=== PATIENT | female | born 1990 | race Caucasian/White ===

== ENCOUNTER 2024-11-21 01:30 | Emergency (ER) | payer OTHER, SELFPAY ==
[2024-11-21 01:31] VITALS: BP 138/97; PULSE 90; RESP 16; TEMP 36.8; O2SAT 97; BMI 34.3
--- NOTE | 2024-11-21 02:49 | ED_ITS ---
HPI - Recheck/Abnormal Lab/Rx General Chief Complaint: Recheck/Abnormal Lab/Rx Stated Complaint: diabetic and out of medication Time Seen by Provider: 11/21/24 01:45 Source: patient Mode of arrival: Family Vehicle Limitations: no limitations History of Present Illness HPI narrative: 34-year-old female history of diabetes states she ran out of her medications including Liraglutide and metformin, patient states she also takes Jardiance but still has that. Reports glucose ranging between the 340s to 350s. Recently moved to the area and has not established with a primary care. Patient states she was set up follow up in [place] but does not have transportation. Denies any other symptoms or concerns currently. Related Data Previous Rx's Medication Instructions Recorded liraglutide 0.6 mg/0.1 mL (18 mg/3 1.8 mg (0.3 mL) SUBCUT Q24H #9 mL 11/21/24 mL) subcutaneous pen injector (Victoza 2-Ion) metformin 500 mg tablet 1,000 mg (2 x 500 mg) PO BID 30 11/21/24 days #120 tabs Review of Systems Review of Systems ROS Unobtainable: All systems reviewed & are unremarkable except as noted in HPI and below Exam Narrative Exam Narrative: GENERAL: Alert and oriented x three, obese female in no acute distress HEENT: Head normocephalic, atraumatic, EOMI, pupils reactive, face symmetric, moist mucous membranes NECK: Supple, full range of motion CARDIOVASCULAR: Regular rate and rhythm without murmurs, rubs or gallops. RESPIRATORY: Breath sounds equal bilaterally, no wheezes rales or rhonchi. ABDOMEN: Soft, nontender. Normoactive bowel sounds all 4 quadrants. No guarding or rebound, rigidity, no mass : No CVA tenderness EXTREMITIES: Normal range of motion, normal gait NEUROLOGICAL: Cranial nerves II through XII grossly intact. Moving all extremities SKIN: Warm, dry, no petechiae, no rashes or lesions. Initial Vital Signs Initial Vital Signs: Vital Signs Temperature 98.2 F 11/21/24 01:31 Pulse Rate 90 11/21/24 01:31 Respiratory Rate 16 11/21/24 01:31 Blood Pressure 138/97 H 11/21/24 01:31 Pulse Oximetry 97 11/21/24 01:31 Oxygen Delivery Method Room Air 12/30/24 01:31 Course Orders Ordered: ED Orders 11/21/24 01:44 Consult to CORPORATE REPRESENTATIVE - Nondestructive Tester Stat Vital Signs Vital signs: Vital Signs - 8 hr 11/21/24 01:31 11/21/24 03:05 Temperature 98.2 F Pulse Rate 90 89 Respiratory Rate 16 14 Blood Pressure 138/97 H 120/78 Pulse Oximetry 97 97 Oxygen Delivery Method Room Air Room Air MDM - Recheck/Abnormal Lab/Rx Lab Data Labs: Point of Care Testing Glucose POC 117 MDM Narrative Medical decision making narrative: 34-year-old female requesting medication refill, patient does not currently have access to primary care in his currently homeless but staying of the [facility]. Patient's glucose here is 117, she states she has been on Victoza for several days as well as her metformin. Refills were sent. CORPORATE REPRESENTATIVE is going to reach out to the patient later today to discuss resources patient is agreeable to this. Was also given card with contact info for local primary care physicians currently taking new patients. Discharge Plan Departure Patient Disposition: Home Clinical Impression: Encounter for medication refill Activity Restrictions/Additional Instructions: Please set up follow up with the primary care, there is a card included that has a QR code with local primary care physicians that are currently taking patients. Our social work professor will likely reach out to you tomorrow or the following day to touch base about resources. Please return if you have any other new or concerning changes. Prescriptions: New liraglutide [Victoza 2-Ion] 0.6 mg/0.1 mL (18 mg/3 mL) pen injector 1.8 mg SUBCUT Q24H Qty: 9 0RF metformin 500 mg tablet 1,000 mg PO BID 30 Days Qty: 120 0RF Referrals: Bhupinder Verdugo [Other] Stand Alone Forms: Patient Portal/API/Survey
[2024-11-21 03:05] VITALS: BP 120/78; PULSE 89; RESP 14; O2SAT 97
--- NOTE | 2024-11-22 13:21 | CM.SWNOTE ---
ED CYLINDER BLOCK MECHANIC Follow up Note CYLINDER BLOCK MECHANIC receives follow up consult to assist patient in establishing with PCP and to discuss housing resources. CYLINDER BLOCK MECHANIC attempts to call patient's number multiple times and the call does not go through. CYLINDER BLOCK MECHANIC is unable to identify another way to reach patient. ED welfare analyst to attempt to meet with patient upon next ED presentation. Radha Recinos, CAMPAIGN FUNDRAISER
== END 2024-11-21 03:05 | disposition home or self-care (01) ==
PROVIDERS: Emergency Provider Emergency Medicine
DX: Z76.0 Encounter for issue of repeat prescription (principal); E11.9 Type 2 diabetes mellitus without complications; Z79.84 Long term (current) use of oral hypoglycemic drugs; Z79.85 Long-term (current) use of injectable non-insulin antidiabetic drugs; Z59.01 Sheltered homelessness
CPT/HCPCS: 82962; 99282

== ENCOUNTER 2024-12-18 09:15 | Emergency (ER) | payer OTHER, SELFPAY ==
[2024-12-18 09:20] VITALS: BP 134/78; PULSE 102; RESP 16; TEMP 36.4; O2SAT 97; BMI 35.4
--- NOTE | 2024-12-18 09:29 | ED.GENADULT ---
HPI - General Adult General Chief complaint: Recheck/Abnormal Lab/Rx Stated complaint: diabetic, wanting a refill on medication Time Seen by Provider: 12/18/24 09:18 Mode of arrival: Ambulatory History of Present Illness HPI narrative: Patient requests refill of medications. She was homeless and new to the region. She denies any other complaints. Related Data Previous Rx's Medication Instructions Recorded liraglutide 0.6 mg/0.1 mL (18 mg/3 1.8 mg (0.3 mL) SUBCUT Q24H #9 mL 11/21/24 mL) subcutaneous pen injector (Victoza 2-Ion) metformin 500 mg tablet 1,000 mg (2 x 500 mg) PO BID 30 11/21/24 days #120 tabs albuterol sulfate 90 mcg/actuation 1 inh inhalation Q4-6H PRN 12/18/24 breath activated powder shortness of breath #1 ea inhaler,sensor empagliflozin 25 mg tablet 25 mg PO DAILY #30 tabs 12/18/24 (Jardiance) escitalopram oxalate 20 mg tablet 30 mg (1.5 x 20 mg) PO DAILY #60 12/18/24 tabs liraglutide 0.6 mg/0.1 mL (18 mg/3 1.8 mg (0.3 mL) SUBCUT Q24H #9 mL 12/18/24 mL) subcutaneous pen injector (Victoza 3-Ion) metformin 1,000 mg tablet 1,000 mg PO BID #60 tabs 12/18/24 Exam Initial Vital Signs Initial Vital Signs: Vital Signs Temperature 97.6 F 12/18/24 09:20 Pulse Rate 102 H 12/18/24 09:20 Respiratory Rate 16 12/18/24 09:20 Blood Pressure 134/78 12/18/24 09:20 Pulse Oximetry 97 12/18/24 09:20 Oxygen Delivery Method Room Air 12/18/24 09:20 Const: Awake, alert, no acute distress, nontoxic appearing Cardiac: regular rate, regular rhythm RESP: unlabored, conversational without dyspnea Skin: Warm, Dry, intact, no rashes Neuro: AO x3, CN II-XII grossly intact, moves all extremities Course Vital Signs Vital signs: Vital Signs - 8 hr 12/18/24 09:20 Temperature 97.6 F Pulse Rate 102 H Respiratory Rate 16 Blood Pressure 134/78 Pulse Oximetry 97 Oxygen Delivery Method Room Air Medical Decision Making MDM Narrative Medical decision making narrative: Patient here for medication refill. Multiple noncontrolled medication sent to pharmacy of choice. She was given a primary care referral card and good Rx card. Discharge Plan Departure Patient Disposition: Home Clinical Impression: Encounter for medication refill Instructions: DI for Diabetes Type 2 Activity Restrictions/Additional Instructions: Follow up with a primary care doctor to follow up your chronic conditions. Prescriptions: New Jardiance 25 mg tablet 25 mg PO DAILY Qty: 30 0RF metformin 1,000 mg tablet 1,000 mg PO BID Qty: 60 0RF escitalopram oxalate 20 mg tablet 30 mg PO DAILY Qty: 60 0RF liraglutide [Victoza 3-Ion] 0.6 mg/0.1 mL (18 mg/3 mL) pen injector 1.8 mg SUBCUT Q24H Qty: 9 0RF albuterol sulfate 90 mcg/actuation aero powdr breath act w/sensor 1 inh inhalation Q4-6H PRN (Reason: shortness of breath) Qty: 1 0RF No Action liraglutide [Victoza 2-Ion] 0.6 mg/0.1 mL (18 mg/3 mL) pen injector 1.8 mg SUBCUT Q24H Qty: 9 0RF metformin 500 mg tablet 1,000 mg PO BID 30 Days Qty: 120 0RF Stand Alone Forms: Patient Portal/API/Survey
== END 2024-12-18 09:38 | disposition home or self-care (01) ==
PROVIDERS: Emergency Provider Emergency Medicine
DX: Z76.0 Encounter for issue of repeat prescription (principal); Z59.00 Homelessness unspecified
CPT/HCPCS: 99281

== ENCOUNTER 2025-01-26 17:03 | Emergency (ER) | payer OTHER, SELFPAY ==
[2025-01-26 17:11] VITALS: BP 137/86; PULSE 94; RESP 14; TEMP 36.1; O2SAT 98; BMI 40.7
--- NOTE | 2025-01-26 17:22 | EKG_ITS ---
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
--- NOTE | 2025-01-26 17:41 | ED.RECABL ---
HPI - Recheck/Abnormal Lab/Rx <Skyler HarryILA - Last Filed: 01/26/25 17:47> General Chief Complaint: Recheck/Abnormal Lab/Rx Stated Complaint: High Glucose no meds Time Seen by Provider: 01/26/25 17:20 Mode of arrival: Ambulatory History of Present Illness HPI narrative: 34-year-old female, with history of diabetes and anxiety, presents to the emergency department requesting a medication refill of her diabetes medication. Patient has been out of her medications for 3 days and feels like her blood sugar is starting to rise. Blood sugar in triage was 236. Patient states that when she starts getting anxious, she starts developing some chest pain. Patient denies any radiation of the pain or difficulty breathing. Related Data Previous Rx's Medication Instructions Recorded liraglutide 0.6 mg/0.1 mL (18 mg/3 1.8 mg (0.3 mL) SUBCUT Q24H #9 mL 11/21/24 mL) subcutaneous pen injector (Victoza 2-Ion) albuterol sulfate 90 mcg/actuation 1 inh inhalation Q4-6H PRN 12/18/24 breath activated powder shortness of breath #1 ea inhaler,sensor empagliflozin 25 mg tablet 25 mg PO DAILY #30 tabs 12/18/24 (Jardiance) escitalopram oxalate 20 mg tablet 30 mg (1.5 x 20 mg) PO DAILY #60 12/18/24 tabs liraglutide 0.6 mg/0.1 mL (18 mg/3 1.8 mg (0.3 mL) SUBCUT Q24H #9 mL 12/18/24 mL) subcutaneous pen injector (Victoza 3-Ion) metformin 1,000 mg tablet 1,000 mg PO BID #60 tabs 12/18/24 empagliflozin 25 mg tablet 25 mg PO DAILY #60 tabs 01/26/25 (Jardiance) escitalopram oxalate 20 mg tablet 30 mg (1.5 x 20 mg) PO DAILY #60 01/26/25 tabs liraglutide 0.6 mg/0.1 mL (18 mg/3 1.8 mg (0.3 mL) SUBCUT Q24H 60 01/26/25 mL) subcutaneous pen injector days #18 mL (Victoza 3-Ion) metformin 1,000 mg tablet 1,000 mg PO BID 60 days #120 tabs 01/26/25 Allergies Allergy/AdvReac Type Severity Reaction Status Date / Time No Known Drug Allergies Allergy Verified 01/26/25 17:11 Review of Systems <ILA Martinez - Last Filed: 01/26/25 17:47> Review of Systems Narrative: Narrative: See HPI. GENERAL: Denies chills, fatigue, fever, sweats. HEENT: Denies sinus pain, ear pain, sore throat, difficulty swallowing, dizziness. RESPIRATORY: Denies dyspnea, cough, wheezing, sputum. CARDIOVASCULAR: Denies chest pain, palpitations, edema. GASTROINTESTINAL: Denies nausea, vomiting, abdominal pain, diarrhea, constipation. MSK: Denies weakness, joint pain, or bony pain. SKIN: Denies rash, skin lesions, or pruritis. NEUROLOGIC: Denies weakness, dizziness, headache, numbness, confusion. PSYCHIATRIC: No concerning psychosocial issues. Denies any HI or SI. Endorses mild anxiety. Patient History <ILA Martinez - Last Filed: 01/26/25 17:47> Social History Smoking Status: Current every day smoker Smoking Status: Current every day smoker Exam <ILA Martinez - Last Filed: 01/26/25 17:47> Narrative Exam Narrative: Exam Narrative: GENERAL: This is a well-nourished, well-developed patient, in no acute distress. HEAD: Atraumatic. Normocephalic. EYES: Pupils equal round and reactive. Extraocular motions intact. No scleral icterus, injection or drainage. ENT: Nose without bleeding, purulent drainage. Airway patent. NECK: Trachea midline. No JVD. CARDIOVASCULAR: Regular rate and rhythm without murmurs, peripheral pulses intact, cap refill <2 sec. RESPIRATORY: Breath sounds equal and clear bilaterally. No wheezes, rales, or rhonchi. No cough. No increased respiratory effort. No accessory muscle use. GASTROINTESTINAL: Abdomen soft, non-tender, nondistended without guarding or rebound. No suprapubic pain. MSK: Moves all extremities. Normal range of motion, no clubbing or edema. Neurovascularly intact. NEURO: A&O x 3. SKIN: Warm, dry, no rashes or lesions noted. Initial Vital Signs Initial Vital Signs: Vital Signs Temperature 97.0 F L 01/26/25 17:11 Pulse Rate 94 H 01/26/25 17:11 Respiratory Rate 14 01/26/25 17:11 Blood Pressure 137/86 01/26/25 17:11 Pulse Oximetry 98 01/26/25 17:11 Oxygen Delivery Method Room Air 01/26/25 17:11 Reviewed <Dorys Ernst MD - Last Filed: 01/27/25 08:16> Initial Vital Signs Initial Vital Signs: Vital Signs Temperature 97.0 F L 01/26/25 17:11 Pulse Rate 94 H 01/26/25 17:11 Respiratory Rate 14 01/26/25 17:11 Blood Pressure 137/86 01/26/25 17:11 Pulse Oximetry 98 01/26/25 17:11 Oxygen Delivery Method Room Air 01/26/25 17:11 Course <ILA Martinez - Last Filed: 01/26/25 17:47> Vital Signs Vital signs: Vital Signs - 8 hr 01/26/25 17:11 Temperature 97.0 F L Pulse Rate 94 H Respiratory Rate 14 Blood Pressure 137/86 Pulse Oximetry 98 Oxygen Delivery Method Room Air <Dorys Ernst MD - Last Filed: 01/27/25 08:16> Vital Signs Vital signs: Vital Signs - 8 hr 01/26/25 17:11 Temperature 97.0 F L Pulse Rate 94 H Respiratory Rate 14 Blood Pressure 137/86 Pulse Oximetry 98 Oxygen Delivery Method Room Air MDM - Recheck/Abnormal Lab/Rx <ILA Martinez - Last Filed: 01/26/25 17:47> Differential Diagnosis Differential diagnosis: Likely encounter for medication refill ECG Data Attestation: I personally reviewed and interpreted this ECG as follows: Interpretation: Vent rate of 89 bpm NSR OH interval 168 ms MDM Narrative Medical decision making narrative: 34-year-old female requiring medication refill. Patient has an appointment with her new family doctor later next month. Will provide enough medication to get her to her appointment. Discussed plan of care and worsening symptoms that would necessitate a return visit. Patient verbalized understanding was agreeable to course of action. Discharge Plan Departure Patient Disposition: Home Clinical Impression: Encounter for medication refill Activity Restrictions/Additional Instructions: *You have been diagnosed with diabetes. I have refilled your medication for your diabetes your anxiety. Please follow-up with your appointment with Dr. Villalpando to get established. For worsening symptoms that includes uncontrolled high blood sugar, difficulty breathing, chest pain, etc. please return to the emergency department. *What to do: *Please continue to take your regular medications as directed. [ x] New medication prescriptions sent to your pharmacy: [[facility]] [ ] New medication written as a paper prescription [ ] No new medications given *Please follow up with your primary care provider in 2-3 days, call for an appointment. Let them know you were seen in the Emergency Department and that we ask that you be seen in follow up. We will electronically transmit a record of today's note if your PCP is in our system *If you do not have a primary care provider please contact the [facility] Resource line at [phone]. They will ask some questions about your medical history and help get you set up with a doctor in the community. ? Return to ER if you should have any new, worsening or concerning symptoms, such as worsening pain, severe headache, confusion, chest pain, difficulty breathing, fever greater than 101 F, shaking chills, persistent vomiting to the point that you cannot drink fluids, or other new or worsening symptoms. Prescriptions: New Jardiance 25 mg tablet 25 mg PO DAILY Qty: 60 0RF escitalopram oxalate 20 mg tablet 30 mg PO DAILY Qty: 60 0RF liraglutide [Victoza 3-Ion] 0.6 mg/0.1 mL (18 mg/3 mL) pen injector 1.8 mg SUBCUT Q24H 60 Days Qty: 18 0RF metformin 1,000 mg tablet 1,000 mg PO BID 60 Days Qty: 120 0RF No Action liraglutide [Victoza 2-Ion] 0.6 mg/0.1 mL (18 mg/3 mL) pen injector 1.8 mg SUBCUT Q24H Qty: 9 0RF Jardiance 25 mg tablet 25 mg PO DAILY Qty: 30 0RF metformin 1,000 mg tablet 1,000 mg PO BID Qty: 60 0RF escitalopram oxalate 20 mg tablet 30 mg PO DAILY Qty: 60 0RF liraglutide [Victoza 3-Ion] 0.6 mg/0.1 mL (18 mg/3 mL) pen injector 1.8 mg SUBCUT Q24H Qty: 9 0RF albuterol sulfate 90 mcg/actuation aero powdr breath act w/sensor 1 inh inhalation Q4-6H PRN (Reason: shortness of breath) Qty: 1 0RF Referrals: Azam Villalpando MD [Primary Care Provider] - Stand Alone Forms: Patient Portal/API/Survey ED Sign-out <Dorys Ernst MD - Last Filed: 01/27/25 08:16> Cosign ED Attending Cosjoelature Attestation: I was immediately available in the department for consultation throughout this patient's visit. Dorys Ernst MD
[2025-01-26 17:50] VITALS: BP 126/68; PULSE 86; RESP 16; O2SAT 96
== END 2025-01-26 17:53 | disposition home or self-care (01) ==
PROVIDERS: Emergency Provider Registered Nurse; PCP Family Medicine
DX: Z76.0 Encounter for issue of repeat prescription (principal)
CPT/HCPCS: 93005; 99281; 99283

== ENCOUNTER → 2025-03-16 09:27 | Outpatient (CLI) | payer OTHER, SELFPAY ==
[2025-03-16 10:37] LABS: Hematocrit 38.5 % (36-46); Hemoglobin 12.9 g/dL (12.0-16.0); Mean Corpuscular HGB Conc 33.5 % (30-36); Mean Corpuscular Hemoglobin 26.5 PG (26-34); Platelet Count 327 X10^3/uL (150-400); Red Blood Cell Count 4.87 X10^6/uL (4.0-5.2); Red Cell Distribution Width 14.3 % (11.6-14.8); White Blood Cell Count 5.8 X10^3/uL (4.5-11.0)
[2025-03-16 11:13] LABS: Hemoglobin A1C% w Est Avg Glu 5.6 % (4.0-6.0)
[2025-03-16 11:16] LABS: Alanine Aminotransferase 35 IU/L (<35); Albumin 4.3 g/dL (3.5-5.0); Albumin Globulin Ratio 1.5 (1.0-2.8); Alkaline Phosphatase 62 U/L (38-126); Aspartate Aminotransferase 24 IU/L (14-36); Bilirubin Total 0.3 mg/dL (0.2-1.3); Blood Urea Nitrogen 13 mg/dL (7-17); Carbon Dioxide 25 mmol/L (22-32); Chloride 104 mmol/L (98-107); Cholesterol 191 mg/dL (140-199); Estimated Glomerular Filt Rate > 60 mL/min (>60); Globulin 2.9 g/dL (1.7-4.1); Glucose 109 mg/dL (70-99); HDL Cholesterol 41 mg/dL (40-60); HEMOLYSIS < 15 (0-50); LDL Cholesterol Calculated 120 mg/dL (<100); Potassium 4.6 mmol/L (3.4-5.1); Sodium 138 mmol/L (137-145); Total Protein 7.2 g/dL (6.3-8.2); Triglycerides 151 mg/dL (35-150)
[2025-03-16 13:25] LABS: Prolactin 7.2 ng/mL (3.0-18.6)
[2025-03-16 14:48] LABS: Creatinine Urine Random 48.56 mg/dL
[2025-03-16 14:52] LABS: Microalbumin Urine Random 16.2 mg/dL (0-1.6)
[2025-03-16 21:12] LABS: Follicle Stimulating Hormone 6.13 mIU/mL; Free T4, Direct Thyroxine 1.26 ng/dL (0.78-2.19); Progesterone, Total 0.58 ng/mL
== END ==
PROVIDERS: PCP Family Medicine; Referring Provider Family Medicine; Visit Provider Family Medicine
DX: L68.0 Hirsutism (principal); N91.5 Oligomenorrhea, unspecified; E28.2 Polycystic ovarian syndrome; E11.9 Type 2 diabetes mellitus without complications; E66.01 Morbid (severe) obesity due to excess calories
CPT/HCPCS: 36415; 80053; 80061; 82043; 82570; 83001; 83036; 83498; 84144; 84146; 84439; 85027

== ENCOUNTER → 2025-04-06 16:10 | Outpatient (CLI) | payer OTHER, SELFPAY ==
[2025-04-06 17:04] LABS: HCG Quantitative /Beta subunit < 2.39 mIU/mL
[2025-04-06 17:16] LABS: Luteinizing Hormone 0.919 mIU/mL
== END ==
PROVIDERS: PCP Family Medicine; Referring Provider Family Medicine; Visit Provider Family Medicine
DX: N91.5 Oligomenorrhea, unspecified (principal); L68.0 Hirsutism
CPT/HCPCS: 36415; 83002; 84402; 84403; 84443; 84702

== ENCOUNTER → 2025-04-21 12:05 | Outpatient (CLI) | payer OTHER, SELFPAY ==
--- NOTE | 2025-04-21 12:07 | DI.US.S_ITS ---
PROCEDURE: US PELVIC COMPLETE INDICATIONS: eval for PCOS TECHNIQUE: Real-time scanning was performed of the pelvic organs, with image documentation. Additional endovaginal scanning was necessary due to incomplete visualization of the adnexal and endometrial structures by transabdominal scanning. COMPARISON: None. FINDINGS: Uterus: Uterus is anteverted and normal in size at 8.6 x 5.5 x 4.4 cm. The myometrium is heterogeneous with a possible the venetian blind appearance. The endometrium measures 6.4 mm combined thickness. Ovaries: The right ovary measures 2.5 x 2.6 x 1.4 cm, with a calculated ovarian volume of 4.8 cc. The left ovary measures 3.4 x 2.4 x 3.0 cm, with a calculated ovarian volume of 12.8 cc. The ovaries are only seen transabdominally and have a grossly normal appearance, however limited evaluation of small follicles. No adnexal masses are seen. Other: No pathologic free abdominal or pelvic fluid. IMPRESSION: Heterogeneous uterus with a possible venetian blind appearance, correlate for adenomyosis. The ovaries are only seen transabdominally and appear grossly normal, however unable to exclude PCOS as small follicles cannot be seen transabdominally. We strive to produce accurate, complete, and clear reports of imaging services. To assist us in improving patient care, this report was composed using standard report templates and voice recognition software. Therefore, it may contain abnormal punctuation, insertions and/or omissions. Occasional wrong-word or sound-alike substitutions may occur. Though we review the report and make efforts to correct it, we do recommend that the report be read carefully in proper context to recognize any text inaccuracies. Dictated by: Farhad Breaux M.D. on 04/22/2025 at 13:30 Approved by: Farhad Breaux M.D. on 04/22/2025 at 13:33
== END ==
PROVIDERS: PCP Family Medicine; Referring Provider Family Medicine; Visit Provider Family Medicine
DX: L68.0 Hirsutism (principal); N91.5 Oligomenorrhea, unspecified
CPT/HCPCS: 76830; 76856

== ENCOUNTER → 2025-06-29 09:50 | Outpatient (CLI) | payer OTHER, SELFPAY | PROVIDERS: PCP Family Medicine; Visit Provider Chiropractor | DX: N94.9 Unspecified condition associated with female genital organs and menstrual cycle (principal) | CPT/HCPCS: 87077; 87086; 87186; 87210 ==

== ENCOUNTER → 2025-08-10 09:51 | Outpatient (CLI) | payer OTHER, SELFPAY ==
--- NOTE | 2025-08-10 09:53 | DI.RAD.S_ITS ---
PROCEDURE: XR CERVICAL SPINE 2V OR 3V INDICATIONS: chronic neck pain TECHNIQUE: Three views of the cervical spine were acquired. COMPARISON: None. FINDINGS: Cervical spine curvature and alignment: Normal. Bones: There are no osseous abnormalities. Disc spaces: Normal in height without significant degeneration. Soft tissues: No soft tissue swelling, calcification or mass. IMPRESSION: Normal cervical spine. Dictated by: Isiah Lao M.D. on 08/10/2025 at 10:31 Approved by: Isiah Lao M.D. on 08/10/2025 at 10:32
== END ==
PROVIDERS: PCP Family Medicine; Referring Provider Family Medicine; Visit Provider Family Medicine
DX: M54.2 Cervicalgia (principal); G89.29 Other chronic pain
CPT/HCPCS: 72040

== ENCOUNTER → 2025-09-19 13:11 | Outpatient (CLI) | payer OTHER, SELFPAY ==
[2025-09-19 15:50] LABS: Urine N gonorrhoeae NOT DETECTED
[2025-09-19 16:02] LABS: Urine Chlamydia NOT DETECTED
== END ==
PROVIDERS: PCP Family Medicine; Visit Provider Nurse Practitioner Family
DX: Z11.3 Encounter for screening for infections with a predominantly sexual mode of transmission (principal); N94.89 Other specified conditions associated with female genital organs and menstrual cycle
CPT/HCPCS: 87210; 87491; 87591